=== PATIENT | male | born 1955 | race Two or more races ===

== ENCOUNTER → 2017-07-20 | Day surgery (SDC) | payer OTHER ==
[~2017-07-20] MED LIST: ALENDRONATE SOD70 MG PO; AMITRIPTYLINE H25 MG PO; BACLOFEN10 MG PO; BISACODYL5 MG PO; CALCIUM 600 PO; CEFAZOLIN SOD 1 GM VIAL ONE; CIPRO500 MG PO; FENTANYL CITRATE/PF 100MCG/2 ML INJ ONE; FUROSEMIDE40 MG PO; KEPPRA500 MG PO; LEVOTHYROXINE50 MCG PO; LIDOCAINE HCL50 ML TOP; LIDOCAINE PATCH TD; LISINOPRIL10 MG PO; METFORMIN HCL500 MG PO; MIDAZOLAM HCL 2 MG/2 ML VIAL ONE; MULTI-VITAMIN1 EACH; NEURONTIN300 MG PO; PANTOPRAZOLE SO40 MG PO; SANTYL OINTMENT TOP; SIMVASTATIN20 MG PO; TYLENOL; ULTRAM50 MG PO; VITAMIN D3 PO; [UNRECOGNIZED DRUG - OTHER] PO
[2017-07-20 08:30] LABS: BASOPHILS % 0.5 % (0.0-1.0); EOSINOPHILS % 0.6 % (0.0-6.0); HEMATOCRIT 29.2 % (38.2-49.6); HEMOGLOBIN 9.2 g/dL (14.0-18.0); LYMPHOCYTES % 32.1 % (18.0-39.1); MEAN CORPUSCULAR HEMOGLOBIN 24.7 pg (28-32); MEAN CORPUSCULAR HGB CONC 31.5 g/dL (31-35); MEAN CORPUSCULAR VOLUME 78.3 fL (81-99); MONOCYTES # (AUTO) 0.6 (0.2-0.8); MONOCYTES % 9.6 % (4.4-11.3); NEUTROPHILS # (AUTO) 3.6 (2.1-6.9); NEUTROPHILS % 56.7 % (38.7-80.0); PLATELET COUNT 257 x10e3/uL (140-360); RED BLOOD COUNT 3.73 x10e6/uL (4.3-5.7); RED CELL DISTRIBUTION WIDTH 16.5 % (11.7-14.4)
[2017-07-20 08:44] LABS: ANION GAP 12.6 mmol/L (8-16); BLOOD UREA NITROGEN 14 mg/dL (7-26); BUN/CREATININE RATIO 26 (6-25); CALCIUM 9.2 mg/dL (8.4-10.2); CARBON DIOXIDE 29 mmol/L (22-29); CHLORIDE 105 mmol/L (98-107); CREATININE, SERUM 0.53 mg/dL (0.72-1.25); EST GLOMERULAR FILTRATION RATE > 60 ML/MIN (60-); GLUCOSE 100 mg/dL (74-118); POTASSIUM 3.6 mmol/L (3.5-5.1); SODIUM 143 mmol/L (136-145)
--- NOTE | 2017-07-20 14:24 | Operative Report ---
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 POSTOPERATIVE DIAGNOSIS: Stage IV right trochanteric pressure ulcer with osteomyelitis. PROCEDURE PERFORMED: 1. Excision of trochanteric pressure ulcer when ostectomy. 2. Tensor fascia katerine fasciocutaneous flap and closure. ANESTHESIA: MAC. HISTORY: The patient is a 61-year-old male who is a quadriplegic from a traumatic injury approximately 20 years ago. The patient has developed a stage IV right trochanteric pressure ulcer with osteomyelitis. The risks, benefits and alternatives of treatment were discussed with the patient, and he is prepared to undergo the procedure as outlined. DETAILS OF PROCEDURE: Patient was marked preoperatively in the holding area. He was brought to the operating theater, and after the induction of adequate IV sedation, he was prepped and draped in a supine position. A time out was performed. The procedure was begun by marking out the draining sinus directly over the trochanteric ulcer, and the incision was then made through the skin and subcutaneous tissues. All bleeding was controlled using the electrocautery. Using the electrocautery, the incision was deepened through the subcutaneous tissue all the way down to the fascia of the lateral portion of the trochanter. At this point, the pressure ulcer was removed en bloc with all of the deep underlying tissues containing the draining sinus. Once this was removed, the area of osteomyelitis was well delineated. This area was then removed, and all of the tissue was then sent for permanent pathologic examination. Prior to opening up any new planes, the wound was irrigated with antibiotic-containing solution and a powered lavage system. At this point, the subcutaneous tissues were elevated and undermined, and then the tensor fascia katerine was identified on the anterior lateral surface of the leg. At this point, the tensor fascia katerine was dissected from proximal to distal and so that it would transpose laterally over the defect. Once the fascia katerine had been mobilized, it was transposed and then it was sutured with 2-0 Vicryl suture in an interrupted fashion directly over the trochanteric bone. At this point, the subcutaneous tissues were brought together over the tensor fascia katerine, and a layered closure was performed over a 7-Nigerian drain which was placed percutaneously and sutured to the skin. The skin was approximated with 3-0 Monocryl in an interrupted fashion, followed by a 3-0 nylon in an interrupted horizontal mattress fashion. An antibiotic ointment and then a VAC dressing was placed by the wound care team and set for 125 mm of continuous negative pressure. At the completion, the VAC was noted to hold pressure well, and the patient was then returned to the recovery room in satisfactory condition and discharged with a postoperative instruction sheet as well as a followup appointment. Job#: [id number]
== END | disposition home or self-care (01) ==
LOC: OR 08:00
PROVIDERS: ATTEND Plastic Surgery
DX: L89.214 Pressure ulcer of right hip, stage 4 (principal); M86.9 Osteomyelitis, unspecified; I10 Essential (primary) hypertension; G82.50 Quadriplegia, unspecified; E11.9 Type 2 diabetes mellitus without complications; M62.838 Other muscle spasm; Z87.891 Personal history of nicotine dependence
CPT/HCPCS: 15953; 36415; 80048; 85025; 88305; 93005; 97605; J0690; J2250

== ENCOUNTER 2017-11-10 10:13 | Outpatient (RCR) | payer OTHER ==
[~2017-11-10 10:13] MED LIST changes: -CEFAZOLIN SOD 1 GM VIAL ONE; -FENTANYL CITRATE/PF 100MCG/2 ML INJ ONE; -MIDAZOLAM HCL 2 MG/2 ML VIAL ONE
== END 2017-11-30 ==
LOC: WCC 10:13
PROVIDERS: ATTEND Internal Medicine Infectious Disease
DX: E11.622 Type 2 diabetes mellitus with other skin ulcer (principal); L89.222 Pressure ulcer of left hip, stage 2; R52 Pain, unspecified; I10 Essential (primary) hypertension; E78.00 Pure hypercholesterolemia, unspecified; Z74.01 Bed confinement status